=== PATIENT | female | born 1985 | race Caucasian/White ===

== ENCOUNTER → 2017-11-21 | Outpatient (CLI) | payer OTHER ==
[~2017-11-21] MED LIST: IBUP800; IBUP800 PO; OXYACE5T PO
[2017-11-23 11:26] LABS: HPV Genotype 16 Not Detected (NOTDET); HPV Genotype 18 Not Detected (NOTDET)
[2017-11-29 08:10] LABS: HPV High Risk Other Not Detected
== END | disposition home or self-care (01) ==
LOC: LAB 16:11
PROVIDERS: Obstetrics & Gynecology
DX: Z01.419 Encounter for gynecological examination (general) (routine) without abnormal findings (principal)
CPT/HCPCS: 87624; G0123